=== PATIENT | female | born 1990 | race Two or more races ===

== ENCOUNTER 2024-05-08 08:40 | Inpatient (IN) | payer OTHER ==
[2024-05-08] MEDS: ELECTROLYTE-148 SOLN 500 ML IV SCH ×2 (09:40→10:20)
[2024-05-08] MEDS: CITRIC ACID/SODIUM CITRATE 30 ML UNIT-DOSE CUP PO ONE (11:30)
[2024-05-08] MEDS ORDERED: morphine SULFATE/PF 1 MG/2 ML (2cc Syringe - QUVA) ONE (11:38)
[2024-05-08] MEDS ORDERED: FENTANYL CITRATE/PF 50 MCG/ML VIAL ONE (11:39)
[2024-05-08 11:50] VITALS: BMI 32.1
[2024-05-08 12:54] LABS: CORD BASE EXCESS -4.8 mmol/L (0-2); CORD HCO3 22.6 mmHg (20-29); CORD PCO2 49.9 mmHg (30-78); CORD pH 7.273 (7.14-7.44)
[2024-05-08 12:55] LABS: CORD BASE EXCESS -2.6 mmol/L (0-2); CORD HCO3 23.3 mmHg (20-29); CORD PCO2 44.5 mmHg (30-78); CORD pH 7.337 (7.14-7.44)
[2024-05-08] MEDS ORDERED: METHYLERGONOVINE MALEATE 0.2 MG/1 ML AMP IM PRN (13:01)
[2024-05-08] MEDS: OXYTOCIN 20 UNITS in 0.9% NS 20 UNIT/1,000 ML INFUS.BAG IV SCH (13:35)
[2024-05-08] MEDS: IBUPROFEN 800 MG/8 ML IJ IVPB PRN (14:30)
[2024-05-08] MEDS ORDERED: IBUPROFEN 800 MG/8 ML IJ IVPB ONE (14:47)
[2024-05-08] MEDS ORDERED: OXYTOCIN 20 UNITS in 0.9% NS 20 UNIT/1,000 ML INFUS.BAG IV ONE (17:51)
[2024-05-08] MEDS: ONDANSETRON 4 MG/2 ML VIAL IVPUSH PRN (20:52)
[2024-05-08] MEDS: IBUPROFEN 600 MG TABLET (FP) PO SCH (23:47)
[2024-05-08] MEDS: ACETAMINOPHEN 325 MG TABLET (FP) PO SCH (23:48)
[2024-05-09 08:35] LABS: BASO % 0.3 % (0-2.0); EOS % 0.5 % (0-4.5); HEMATOCRIT 32.5 % (32.4-45.2); HEMOGLOBIN 10.6 GM/dL (10.7-15.3); LYMPH % 15.9 % (8-40); MCH 29.1 pg (25.7-33.7); MCHC 32.7 g/dl (32.0-36.0); MEAN CELL VOLUME 89.1 fl (80-96); MEAN PLT VOLUME 9.8 fl (7.5-11.1); MONO % 7.7 % (3.8-10.2); NEUT % 75.6 % (42.8-82.8); PLATELET COUNT 249 10^3/uL (134-434); RBC 3.64 M/mm3 (3.60-5.2); RDW 14.3 % (11.6-15.6); WHITE BLOOD COUNT 12.4 K/mm3 (4.0-10.0)
[2024-05-09] MEDS: PRENATAL VITAMINS W/ FOLIC ACID TABLET (FP) PO SCH (09:58)
[2024-05-09] MEDS: SIMETHICONE 80 MG TAB.CHEW (FP) PO PRN (09:59)
[2024-05-09] MEDS ORDERED: BISACODYL 10 MG SUPP.RECT RC PRN (13:02)
[2024-05-10] MEDS: oxyCODONE HCL 5 MG TABLET PO PRN (16:17)
[2024-05-11 09:08] LABS: BASO % 0.7 % (0-2.0); EOS % 3.4 % (0-4.5); HEMOGLOBIN 11.3 GM/dL (10.7-15.3); LYMPH % 19.6 % (8-40); MCH 29.6 pg (25.7-33.7); MCHC 33.2 g/dl (32.0-36.0); MEAN CELL VOLUME 89.1 fl (80-96); MEAN PLT VOLUME 9.6 fl (7.5-11.1); NEUT % 71.3 % (42.8-82.8); PLATELET COUNT 297 10^3/uL (134-434); RBC 3.81 M/mm3 (3.60-5.2); RDW 14.1 % (11.6-15.6); WHITE BLOOD COUNT 9.6 K/mm3 (4.0-10.0)
[2024-05-11 11:23] VITALS: BP 103/64; PULSE 60; RESP 17; TEMP 98.4
== END 2024-05-11 13:45 | disposition home or self-care (01) | DRG 540 ==
LOC: JLDR 08:40 → J3W 18:14
PROVIDERS: ADMIT Obstetrics & Gynecology; ATTEND Obstetrics & Gynecology
PROC: 10D00Z1 Extraction of Products of Conception, Low, Open Approach (ICD-10-PCS; principal; 2024-05-08)
DX: O34.211 Maternal care for low transverse scar from previous cesarean delivery (principal); Z3A.39 39 weeks gestation of pregnancy; Z37.0 Single live birth
CPT/HCPCS: 36415; 36600; 59409; 80048; 82803; 85025; 85027; 85610; 85730; 86780; 86850; 86900; 86901; 88307-TC

== ENCOUNTER 2024-12-09 10:52 | Emergency (ER) | payer OTHER ==
[2024-12-09 10:58] VITALS: BP 108/65; PULSE 70; RESP 20; TEMP 98.8; BMI 24.2
== END 2024-12-09 12:07 | disposition home or self-care (01) ==
LOC: JERFT 10:52
PROC: 0HQFXZZ Repair Right Hand Skin, External Approach (ICD-10-PCS; principal; 2024-12-09)
DX: S61.011A Laceration without foreign body of right thumb without damage to nail, initial encounter (principal); W26.0XXA Contact with knife, initial encounter
CPT/HCPCS: 99283-25